=== PATIENT | male | born 1995 | race African-American/Black ===

== ENCOUNTER 2017-10-13 20:14 | Emergency (ER) | payer SELFPAY ==
[2017-10-13 20:29] LABS: BILIRUBIN,URINE NEGATIVE (NEG); CLARITY,URINE CLEAR; COLOR,URINE YELLOW; GLUCOSE,URINE NEGATIVE (NEG); NITRITE,URINE NEGATIVE (NEG); PH,URINE 6.5; PROTEIN,URINE NEGATIVE (NEG-TRACE); UROBILINOGEN,URINE 0.2 mg/dL (0.2 mg/dL)
[2017-10-13 20:32] LABS: ADD MAN DIFF? NO
[2017-10-13 20:33] LABS: BACTERIA,URINE 0 /HPF (0-FEW); RBC,URINE OCC /HPF (0-2); SQUAMOUS EPITHELIAL CELL,UR OCC /LPF; WBC,URINE OCC /HPF (0-4)
[2017-10-13 20:35] LABS: BASO # 0.1 x10^3/uL (0.0-0.2); BASO % 1 % (0-3); EOS # 0.2 x10^3/uL (0.0-0.7); EOS % 3 % (0-3); HEMATOCRIT 46.6 % (39.0-53.0); HEMOGLOBIN 15.8 g/dL (13.0-17.5); LYMPH # 2.3 x10^3/uL (1.0-4.8); LYMPH % 35 % (24-48); MEAN CORPUSCULAR HEMOGLOBIN 29 pg (25-35); MEAN CORPUSCULAR HGB CONC 34 g/dL (31-37); MEAN CORPUSCULAR VOLUME 87 fL (79-100); MONO # 0.6 x10^3/uL (0.0-1.1); MONO % 9 % (0-9); NEUT # 3.3 x10^3uL (1.8-7.7); NEUT % 52 % (31-73); PLATELET COUNT 251 x10^3/uL (140-400); RED BLOOD COUNT 5.38 x10^6/uL (4.30-5.70); WHITE BLOOD COUNT 6.4 x10^3/uL (4.0-11.0)
[2017-10-13 20:42] LABS: ANION GAP 8 (6-14); BLOOD UREA NITROGEN 22 mg/dL (8-26); BUN/CREATININE RATIO 20 (6-20); CALCIUM 8.4 mg/dL (8.5-10.1); CARBON DIOXIDE 28 mmol/L (21-32); CHLORIDE 103 mmol/L (98-107); CREATININE 1.1 mg/dL (0.7-1.3); GFR 100.4; GLUCOSE 91 mg/dL (70-99); POTASSIUM 3.6 mmol/L (3.5-5.1); SODIUM 139 mmol/L (136-145)
[2017-10-13 20:48] LABS: ALBUMIN 3.2 g/dL (3.4-5.0); ALBUMIN/GLOBULIN RATIO 0.9 (1.0-1.7); ALK PHOS 67 U/L (46-116); ALT (SGPT) 29 U/L (16-63); AST (SGOT) 23 U/L (15-37); LIPASE 105 U/L (73-393); TOTAL BILIRUBIN 0.5 mg/dL (0.2-1.0); TOTAL PROTEIN 6.7 g/dL (6.4-8.2)
[2017-10-13] MEDS: KETOROLAC 60 MG/2 ML INJ. IM (20:49)
== END 2017-10-13 21:44 | disposition home or self-care (01) ==
LOC: ER 20:14
DX: R10.12 Left upper quadrant pain (principal); R19.7 Diarrhea, unspecified
CPT/HCPCS: 36415; 80053; 81001; 83690; 85025; 96372; 99284; J1885

== ENCOUNTER 2017-12-21 00:35 | Emergency (ER) | payer SELFPAY ==
[2017-10-13 21:21] VITALS: BP 132/88
[~2017-12-21 00:35] MED LIST: SELE180S3 TP; SULF1TAB24 PO; TRAM-48 PO
[2017-12-21] MEDS ORDERED: cefTRIAXone IM 250 MG VIAL IM ONE (01:15)
[2017-12-21] MEDS ORDERED: AZITHROMYCIN 250 MG TABLET. PO ONE (01:15)
[2017-12-21 01:45] LABS: BILIRUBIN,URINE NEGATIVE (NEG); CLARITY,URINE CLEAR; COLOR,URINE YELLOW; NITRITE,URINE NEGATIVE (NEG); PROTEIN,URINE NEGATIVE (NEG-TRACE)
[2017-12-21 02:02] LABS: BACTERIA,URINE 0 /HPF (0-FEW); RBC,URINE 0 /HPF (0-2); WBC,URINE 0 /HPF (0-4)
[2017-12-21 02:03] LABS: SQUAMOUS EPITHELIAL CELL,UR OCC /LPF
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
== END 2017-12-21 02:18 | disposition home or self-care (01) ==
LOC: ER 00:35
DX: R36.9 Urethral discharge, unspecified (principal); F41.9 Anxiety disorder, unspecified; F32.9 Major depressive disorder, single episode, unspecified; F17.210 Nicotine dependence, cigarettes, uncomplicated
CPT/HCPCS: 81001; 87491; 87591; 96372; 99284; J0696; Q0144

== ENCOUNTER 2018-07-02 06:32 | Emergency (ER) | payer SELFPAY ==
[~2018-07-02] VITALS: Ht 177.8 cm; Wt 68.0 kg
[2018-07-02 06:32] VITALS: BP 132/88
[2018-07-02] MEDS ORDERED: LIDOCAINE 1%/EPI 1:100,000 20 ML VIAL. ONE (06:42)
[2018-07-02] MEDS ORDERED: LIDOCAINE 1%/EPI 1:100,000 20 ML VIAL. IJ ONE (07:00)
[2018-07-02] MEDS ORDERED: TETANUS AND DIPHTHERIA TOX/PF 0.5 ML DISP.SYRIN. VAX IM ONE (07:00)
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
--- NOTE | 2018-07-02 07:58 | RAD ---
Two-view right hand study INDICATIONS: Laceration injury. FINDINGS: No acute fracture or dislocation or osteolytic process is seen. No radiopaque foreign body is seen. IMPRESSION: No acute fracture. Electronically signed by: Bairon Kennedy MD (07/02/2018 7:55 AM) [facility]
== END 2018-07-02 08:03 | disposition home or self-care (01) ==
LOC: ER 06:32
DX: S61.411A Laceration without foreign body of right hand, initial encounter (principal); W18.39XA Other fall on same level, initial encounter; Y93.02 Activity, running; Y92.89 Other specified places as the place of occurrence of the external cause; Y99.8 Other external cause status
CPT/HCPCS: 12002; 73120; 90471; 90714; 99284; J3490; 99283

== ENCOUNTER 2018-07-16 15:57 | Emergency (ER) | payer SELFPAY ==
[~2018-07-16] VITALS: Ht 177.8 cm; Wt 68.0 kg
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
[2018-07-16 16:13] VITALS: BP 132/88
== END 2018-07-16 16:18 | disposition home or self-care (01) ==
LOC: ER 15:57
DX: S61.411D Laceration without foreign body of right hand, subsequent encounter (principal); F41.9 Anxiety disorder, unspecified; F32.9 Major depressive disorder, single episode, unspecified; X58.XXXD Exposure to other specified factors, subsequent encounter
CPT/HCPCS: 99281

== ENCOUNTER 2019-10-17 18:20 | Emergency (ER) | payer SELFPAY ==
[~2019-10-17] VITALS: Ht 177.8 cm; Wt 67.7 kg
[~2019-10-17 18:20] MED LIST changes: -SELE180S3 TP; +SELE180S9 TP
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
[2019-10-17] MEDS ORDERED: IV NORMAL SALINE 1000ML BAG 1,000 ML IV ONE (18:45)
[2019-10-17 18:48] LABS: BASO % 1 % (0-3); EOS # 0.1 x10^3/uL (0.0-0.7); EOS % 3 % (0-3); HEMATOCRIT 41.9 % (39.0-53.0); HEMOGLOBIN 14.3 g/dL (13.0-17.5); LYMPH # 1.4 x10^3/uL (1.0-4.8); LYMPH % 37 % (24-48); MEAN CORPUSCULAR HEMOGLOBIN 29 pg (25-35); MEAN CORPUSCULAR HGB CONC 34 g/dL (31-37); MEAN CORPUSCULAR VOLUME 86 fL (79-100); MONO # 0.4 x10^3/uL (0.0-1.1); MONO % 9 % (0-9); NEUT % 50 % (31-73); PLATELET COUNT 191 x10^3/uL (140-400); RED BLOOD COUNT 4.85 x10^6/uL (4.30-5.70); RED CELL DISTRIBUTION WIDTH 14.3 % (11.5-14.5); WHITE BLOOD COUNT 3.9 x10^3/uL (4.0-11.0)
[2019-10-17 18:56] LABS: CREATININE 1.3 mg/dL (0.7-1.3); GFR 81.4
[2019-10-17 19:02] LABS: ALBUMIN 3.1 g/dL (3.4-5.0); ALBUMIN/GLOBULIN RATIO 1.2 (1.0-1.7); MAGNESIUM 1.9 mg/dL (1.8-2.4); TOTAL BILIRUBIN 0.8 mg/dL (0.2-1.0); TOTAL PROTEIN 5.7 g/dL (6.4-8.2)
--- NOTE | 2019-10-17 19:05 | RAD ---
Exam: CT head INDICATION: Altered mental status TECHNIQUE: Sequential axial images through the head were obtained without the administration of IV contrast. Comparisons: None FINDINGS: No focal parenchymal lesion or hemorrhage is identified. There is no midline shift or sulcal effacement. No acute vascular territory infarction is identified. Myers-white distinction is preserved. The ventricular system is within normal limits without compression hydrocephalus. The basal cisterns are well maintained. The visualized portions of the paranasal sinuses and mastoid air cells are well-pneumatized. No acute fractures. IMPRESSION: No acute intracranial abnormality. Exposure: One or more of the following in the visualized dose reduction techniques were utilized for this examination: 1. Automated exposure control 2. Adjustment of the MA and/or KV according to patient size Use of iterative of reconstructive technique Electronically signed by: Danitza Yap MD (10/17/2019 7:02 PM) [id number]
[2019-10-17 19:21] LABS: BILIRUBIN,URINE NEGATIVE (NEG); CLARITY,URINE CLEAR; COLOR,URINE YELLOW; NITRITE,URINE NEGATIVE (NEG); PROTEIN,URINE NEGATIVE (NEG-TRACE)
[2019-10-17 19:27] LABS: BARBITURATES NEG (NEG); BENZODIAZEPINES NEG (NEG); CANNABINOIDS NEG (NEG); COCAINE NEG (NEG); METHADONE NEG (NEG); OPIATES NEG (NEG); PHENCYCLIDINE NEG (NEG)
[2019-10-17 19:28] LABS: BACTERIA,URINE 0 /HPF (0-FEW); RBC,URINE 0 /HPF (0-2); SQUAMOUS EPITHELIAL CELL,UR OCC /LPF; WBC,URINE OCC /HPF (0-4)
[2019-10-17 19:31] LABS: AMPHETAMINE/METHAMPHETAMINE NEG (NEG)
[2019-10-17 20:20] VITALS: BP 115/68
--- NOTE | 2019-10-19 06:14 | EKG ---
[facility] [address] [place] [address] Test Date: 2019-10-17 Test Time: 18:22:21 Pat Name: BECKY GAFFNEY Department: Room: Gender: M Administrative Office Specialist: : [id number] Requested By: JAMIE MCCALL Order Number: [id number] Reading MD: Tico Cooper MD Measurements Intervals [place] Rate: 77 P: 66 TX: 156 QRS: 64 QRSD: 82 T: 37 QT: 342 QTc: 389 Interpretive Statements SINUS RHYTHM NON-SPECIFIC ST/T CHANGES SUBTLE J-POINT ELEVATION Electronically Signed On 10-19-2019 13:16:13 CDT by Tico Cooper MD
== END 2019-10-17 20:45 | disposition home or self-care (01) ==
LOC: ER 18:20
DX: R55 Syncope and collapse (principal); E86.0 Dehydration; R41.82 Altered mental status, unspecified; F32.9 Major depressive disorder, single episode, unspecified; F41.9 Anxiety disorder, unspecified; F17.200 Nicotine dependence, unspecified, uncomplicated
CPT/HCPCS: 36415; 70450; 80053; 80307; 81001; 83605; 83735; 84484; 85025; 96360; 99285; J7030; 93005